=== PATIENT | male | born 1975 | race African-American/Black ===

== ENCOUNTER 2018-05-20 19:54 | Emergency (ER) | payer MEDICAID ==
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
[2018-05-20 21:23] LABS: ABSOLUTE EOSINOPHILS # (AUTO) 0.2 10^3/uL (0.0-0.6); ABSOLUTE LYMPHOCYTES (AUTO) 4.2 10^3/uL (0.5-4.7); ABSOLUTE MONOCYTES (AUTO) 0.8 10^3/uL (0.1-1.4); ABSOLUTE NEUT (AUTO) 4.9 10^3/uL (1.7-8.2); BASOPHILS % (AUTO) 0.3 % (0-2); EOSINOPHILS % (AUTO) 2.4 % (0-6); HEMATOCRIT 47.5 % (37.9-51.0); HEMOGLOBIN 16.3 g/dL (13.5-17.0); LYMPHOCYTES % (AUTO) 41.5 % (13-45); MEAN CORPUSCULAR HEMOGLOBIN 32.3 pg (27.0-33.4); MEAN CORPUSCULAR HGB CONC 34.2 g/dL (32.0-36.0); MEAN CORPUSCULAR VOLUME 94 fl (80-97); MONOCYTES % (AUTO) 7.4 % (3-13); PLATELET COUNT 219 10^3/uL (150-450); RED BLOOD COUNT 5.03 10^6/uL (4.35-5.55); SEGMENTED NEUTROPHILS % (AUTO) 48.4 % (42-78); TOTAL CELLS COUNTED % (AUTO) 100 %; WHITE BLOOD COUNT 10.1 10^3/uL (4.0-10.5)
[2018-05-20 21:38] LABS: ANION GAP 11 (5-19); BLOOD UREA NITROGEN 13 mg/dL (7-20); CALCIUM 9.3 mg/dL (8.4-10.2); CARBON DIOXIDE 29 mmol/L (22-30); CHLORIDE 105 mmol/L (98-107); GLUCOSE 111 mg/dL (75-110); POTASSIUM 4.3 mmol/L (3.6-5.0); SODIUM 144.5 mmol/L (137-145)
[2018-05-20 21:58] LABS: APPEARANCE,URINE SLIGHTLY-CLOUDY; BILIRUBIN,URINE NEGATIVE (NEGATIVE); COLOR,URINE YELLOW; GLUCOSE, URINE NEGATIVE (NEGATIVE); KETONES,URINE NEGATIVE (NEGATIVE); LEUKOCYTE ESTERASE,URINE SMALL (NEGATIVE); NITRITE,URINE NEGATIVE (NEGATIVE); PROTEIN,URINE NEGATIVE (NEGATIVE); URINE SPECIFIC GRAVITY 1.025
--- NOTE | 2018-05-20 22:16 | RADIOLOGY REPORT (SQ) ---
EXAM DESCRIPTION: US SCROTUM COMPLETED DATE/TME: 05/20/2018 20:50 CLINICAL HISTORY: 43 years, Male, left testicular pain COMPARISON: EXAM DESCRIPTION: CLINICAL HISTORY: 43 years Male left testicular pain COMPARISON: None. TECHNIQUE: Real-time, matias scale sonographic and duplex imaging performed to evaluate the testicles FINDINGS: Right testis measures 44 x 36 x 19 mm and left testis 49 x 36 x 20 mm. There are small bilateral hydroceles. Each testis appears mildly hypoechoic. No definite focal lesion of either testis is seen. No abnormal calcifications of either testis. Right testicle is normal in size. Normal blood flow to the right testicle. No evidence of intratesticular mass. Left testicle is normal in size. Normal blood flow to the left testicle. No evidence of intratesticular mass. Epididymides are unremarkable. IMPRESSION: Possible mild edema within each testis. No evidence of torsion of either testis at this time. No hyper vascularity to suggest inflammation. No focal mass is seen within either testis. However, edema due to trauma, low-grade inflammation or less likely neoplasm on either side is not entirely excluded. Follow-up is recommended to document return to normal appearance. TECHNIQUE: LIMITATIONS: None. FINDINGS: IMPRESSION: 2010 [employer]- All Rights Reserved
[2018-05-20] MEDS ORDERED: CEFTRIAXONE INJ 250 MG VIAL IM ONE (22:43)
[2018-05-20] MEDS ORDERED: LIDOCAINE 1% INJ-PF (10 MG/ML) 30 ML SDV INFIL ONE (22:44)
[2018-05-20] MEDS ORDERED: DOXYCYCLINE HYCLATE 100 MG TABLET PO ONE (22:44)
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
[2018-05-20] MEDS ORDERED: DIPHENHYDRAMINE HCL 50 MG CAPSULE PO ONE (23:15)
[2018-05-20 23:21] LABS: CHLAM PCR NOT DETECTED (NOT DETECT); GON PCR NOT DETECTED (NOT DETECT)
[2018-05-20 23:57] VITALS: BP 170/81
--- NOTE | 2018-05-21 08:17 | XCELERA REPORT ---
[address] [address] Lower Extremity Venous Evaluation Procedure: Color flow and duplex imaging of the veins of the left lower extremity as well as the right Common Femoral vein. Right Sided Venous Evaluation The right common femoral vein is fully compressible. Spontaneous and phasic flow is present in the right common femoral vein. Left Sided Venous Evaluation Subcutaneous area, irregular, mixed echogenic and echolucent area, no Colour flow. in the anterior leg. Normal vessel filling wall to wall, compression and augmentation as well as Colour flow down to the infrageniculate veins. Interpretation Summary No duplex evidence of DVT or obstruction in the left lower extremity nor in the right Common Femoral vein. A complex, non vascular mass in the subcutaneous tissues of the left leg, could be a hematoma, abscess or other lesion. Further evaluation may be warranted, depending on clinical presentation. Name: ETHAN LASSITER Age: 43 yrs Gender: Male : 1975 Patient Status: Emergency Patient Location: ER Study Date: 05/20/2018 10:02 PM Reason For Study: LLE swelling Ordering Physician: ROSSI FARMER Performed By: Victoria Masterson : ROSSI FARMER > Vlad Stubbs
== END 2018-05-20 23:31 | disposition home or self-care (01) ==
LOC: ER 19:54
DX: L02.416 Cutaneous abscess of left lower limb (principal); N50.812 Left testicular pain; N50.811 Right testicular pain; Z88.0 Allergy status to penicillin
CPT/HCPCS: 99284; 96372; 36415; 87086; 85025; 87088; 80048; 81001; 87491; 87591; 93971 ×2; 76870; 93976; 10060; J3490 ×3; J0696

== ENCOUNTER 2019-06-23 02:28 | Emergency (ER) | payer SELFPAY ==
[2019-06-23 03:06] LABS: APPEARANCE,URINE SLIGHTLY-CLOUDY; BILIRUBIN,URINE NEGATIVE (NEGATIVE); COLOR,URINE YELLOW; GLUCOSE, URINE NEGATIVE (NEGATIVE); KETONES,URINE NEGATIVE (NEGATIVE); LEUKOCYTE ESTERASE,URINE MODERATE (NEGATIVE); NITRITE,URINE NEGATIVE (NEGATIVE); PROTEIN,URINE 30 mg/dL (NEGATIVE); URINE SPECIFIC GRAVITY 1.023
--- NOTE | 2019-06-23 07:31 | ER Document Report ---
ED Medical Screen (RME) - General Chief Complaint: Flank Pain Stated Complaint: LOWER BACK PAIN Time Seen by Provider: 06/23/19 07:06 Notes: 44-year-old male presents with urinary urgency that is worse at night for the past 2 months, burning/flow not being rate with urination, flank pain, and bilateral testicular pain. Patient states that the flank pain started off in the left and then has progressed to the right and has been ongoing for 2 months. Patient also has been complaining of bilateral testicular pain that is been going on for the past few days. Patient states he has had this previously. Patient denies any hematuria, nausea/vomiting/diarrhea, abdominal pain, hematuria. TRAVEL OUTSIDE OF THE [place] IN LAST 30 DAYS: No - Related Data Allergies/Adverse Reactions: Penicillins Allergy (Verified 05/20/18 19:59) Past Medical History Renal/ Medical History: Denies: Hx Peritoneal Dialysis Physical Exam - Vital signs Vitals: Temp Pulse Resp BP Pulse Ox 98.8 F 100 20 181/84 H 96 06/23/19 02:32 06/23/19 02:32 06/23/19 02:32 06/23/19 02:32 06/23/19 02:32 - Notes Notes: Abdomen soft nontender. Mild CVA tenderness on left. Testicular exam deferred at this time. Course - Re-evaluation Re-evalutation: I have greeted and performed a rapid initial assessment of this patient. A comprehensive ED assessment and evaluation of the patient, analysis of test results and completion of the medical decision making process with be conducted by additional ED providers. - Vital Signs Vital signs: Temp Pulse Resp BP Pulse Ox 98.4 F 91 18 153/73 H 95 06/23/19 05:57 06/23/19 05:57 06/23/19 05:57 06/23/19 05:57 06/23/19 05:57 - Laboratory Laboratory results interpreted by me: 06/23/19 02:35 Urine Protein 30 H Urine Urobilinogen 2.0 H Ur Leukocyte Esterase MODERATE H
[2019-06-23] MEDS ORDERED: KETOROLAC TROMETHAMINE 60 MG/2 ML SDV IM ONE (07:45)
--- NOTE | 2019-06-23 08:24 | RADIOLOGY REPORT (SQ) ---
EXAM DESCRIPTION: U/S SCROTUM W/DOPPLER COMPLETED DATE/TIME: 06/23/2019 8:02 am REASON FOR STUDY: testicular pain COMPARISON: 2017 TECHNIQUE: Static and realtime matias scale imaging of the scrotum and testes. Selected color Doppler and spectral images recorded to document blood flow. LIMITATIONS: None. FINDINGS: RIGHT: TESTICLE: Normal size. Normal echotexture. Normal blood flow. No mass. EPIDIDYMIS: Normal. HYDROCELE OR VARICOCELE: Mild hydrocele. HERNIA OR EXTRA-TESTICULAR MASS: No. OTHER: No other significant finding. LEFT: TESTICLE: Normal size. Normal echotexture. Normal blood flow. No mass. EPIDIDYMIS: Normal. HYDROCELE OR VARICOCELE: Mild hydrocele. HERNIA OR EXTRA-TESTICULAR MASS: No. OTHER: No other significant finding. IMPRESSION: No evidence of testicular torsion or mass. Mild bilateral hydroceles. TECHNICAL DOCUMENTATION: JOB ID: [id number] [employer]- All Rights Reserved Reading location - IP/workstation name: [email or web address]
--- NOTE | 2019-06-23 08:25 | RADIOLOGY REPORT (SQ) ---
EXAM DESCRIPTION: U/S RETROPERITON LTD COMPLETED DATE/TIME: 06/23/2019 7:51 am REASON FOR STUDY: flank pain, dysuria COMPARISON: None. TECHNIQUE: Dynamic and static grayscale images acquired of the kidneys and bladder and recorded on P ACS. Additional selected color Doppler and spectral images recorded. LIMITATIONS: None. FINDINGS: RIGHT KIDNEY: Normal size. Normal echogenicity. No solid or suspicious masses. No hydronep hrosis. No calcifications. LEFT KIDNEY: Normal size. Normal echogenicity. No solid or suspicious masses. No hydronephrosis. No calcifications. BLADDER: No masses. OTHER FINDINGS: No other significant finding. IMPRESSION: NORMAL RENAL AND BLADDER ULTRASOUND. TECHNICAL DOCUMENTATION: JOB ID: [id number] [employer]- All Rights Reserved Reading location - IP/workstation name: [email or web address]
[2019-06-23] MEDS ORDERED: DOXYCYCLINE HYCLATE 100 MG TABLET PO ONE (09:56)
--- NOTE | 2019-06-23 10:53 | ER Document Report ---
ED GI/ - General Chief Complaint: Flank Pain Stated Complaint: LOWER BACK PAIN Time Seen by Provider: 06/23/19 07:06 Notes: Mr. Linares is a 44-year-old male with no significant past medical history presenting to the ED for testicular pain and urgency. Patient states that he is biggest complaint is the urinary frequency and dysuria. However he has some drooping of his penile skin when he urinates which causes him to dribble. He does endorse some dribbling and decreased stream. He states that he has had an STI in the past however it was many years ago and he is not currently sexually active. He states he is not been sexually active for over 6 months. Patient denies any penile discharge. No abdominal pain, nausea, vomiting or diarrhea. Patient denies any flank pain, fevers or chills, or headaches. TRAVEL OUTSIDE OF THE [place] IN LAST 30 DAYS: No - Related Data Allergies/Adverse Reactions: Penicillins Allergy (Verified 05/20/18 19:59) Past Medical History - Social History Smoking Status: Current Every Day Smoker Family History: Reviewed & Not Pertinent Patient has suicidal ideation: No Patient has homicidal ideation: No Renal/ Medical History: Denies: Hx Peritoneal Dialysis Review of Systems - Review of Systems Constitutional: See HPI EENT: No symptoms reported Cardiovascular: No symptoms reported Respiratory: No symptoms reported Gastrointestinal: No symptoms reported Genitourinary: See HPI Male Genitourinary: See HPI Musculoskeletal: No symptoms reported Skin: No symptoms reported Hematologic/Lymphatic: No symptoms reported Neurological/Psychological: No symptoms reported Physical Exam - Vital signs Vitals: Temp Pulse Resp BP Pulse Ox 98.8 F 100 20 181/84 H 96 06/23/19 02:32 06/23/19 02:32 06/23/19 02:32 06/23/19 02:32 06/23/19 02:32 Interpretation: Hypertensive - General General appearance: Appears well, Alert - HEENT Head: Normocephalic, Atraumatic Eyes: Normal Pupils: PERRL - Respiratory Respiratory status: No respiratory distress Chest status: Nontender Breath sounds: Normal Chest palpation: Normal - Cardiovascular Rhythm: Regular Heart sounds: Normal auscultation Murmur: No - Abdominal Inspection: Normal Distension: No distension Bowel sounds: Normal Tenderness: Nontender Organomegaly: No organomegaly - Genitourinary Inspection: Normal Tenderness: Nontender. No: Lesions, Testicle tender, Epididymis tender Cremasteric reflex: Normal Scrotum: Normal Notes: Patient deferred rectal examination. Some mild excess of skin and drooping of shaft skin. Patient is circumcised. No discharge at urethral meatus. No indirect he appreciated on examination. Testicles are nontender to palpation. Entire urinary examination performed with male applied anthropologist Mark JAIMES in the room. - Back Back: Normal, Nontender. No: CVA tenderness - Bilaterally - Extremities General upper extremity: Normal inspection, Nontender, Normal color, Normal ROM, Normal temperature General lower extremity: Normal inspection, Nontender, Normal color, Normal ROM, Normal temperature, Normal weight bearing. No: Angel's sign - Neurological Neuro grossly intact: Yes Cognition: Normal Orientation: AAOx4 July Coma Scale Eye Opening: Spontaneous Industry Coma Scale Verbal: Oriented Industry Coma Scale Motor: Obeys Commands Industry Coma Scale Total: 15 Speech: Normal Motor strength normal: LUE, RUE, LLE, RLE Sensory: Normal - Psychological Associated symptoms: Normal affect, Normal mood - Skin Skin Temperature: Warm Skin Moisture: Dry Skin Color: Normal Course - Re-evaluation Re-evalutation: Patient is generally well-appearing nontoxic. Initial vitals notable for elevat ed blood pressure however this resolved while in the ED. Differential diagnosis includes UTI, STI, BPH 06/23/19 10:54 UA shows evidence of moderate leukocyte esterase with 20 WBCs. Patient's UA is consistent with a UTI. However he states he is not sexually active. Patient is allergic to penicillins and possibility of UTI related to enlarged BPH, will administer first dose of doxycycline. Patient will be discharged with 14 days of twice daily doxycycline. Will add on gonorrhea and chlamydia however no indication at this point in time to treat empirically with the lack of physical findings such as discharge. Both renal ultrasound and testicular ultrasound were performed prior to my evaluation. Renal ultrasound unremarkable. Testicular ultrasound shows small amount of bilateral mild hydrocele. 06/23/19 11:05 Patient was given doxycycline here in the ED and does not have any evidence of side effect or reaction or allergies. She will be discharged with doxycycline prescription. Recommended that he follow-up with urology. Patient given return precautions. Patient will also told that he would be called if the gonorrhea or chlamydia is positive. 06/23/19 11:08 Patient will also be discharged with tamsulosin for likely early BPH. - Vital Signs Vital signs: Temp Pulse Resp BP Pulse Ox 98.4 F 91 18 153/73 H 95 06/23/19 05:57 06/23/19 05:57 06/23/19 05:57 06/23/19 05:57 06/23/19 05:57 - Laboratory Laboratory results interpreted by me: 06/23/19 02:35 Urine Protein 30 H Urine Urobilinogen 2.0 H Ur Leukocyte Esterase MODERATE H Discharge - Discharge Clinical Impression: UTI (urinary tract infection) Qualifiers: Urinary tract infection type: site unspecified Hematuria presence: without hematuria Qualified Code(s): N39.0 - Urinary tract infection, site not specified Condition: Good Disposition: HOME, SELF-CARE Instructions: Urinary Tract Infection ([facility]), Doxycycline ([facility]), Prostatic Hypertrophy ([facility]) Additional Instructions: Would recommend that he follow-up with a urologist as an outpatient. If you do not have improvement in urinary frequency, burning with urination, please return to the ED for further evaluation. Otherwise it is important that you take the full course of antibiotics. I also prescribed you with tamsulosin, which will help improve your urine stream and decrease the pressure near the prostate. Prescriptions: Doxycycline Monohydrate 100 mg PO BID 14 Days #28 capsule Tamsulosin HCl [Flomax 0.4 mg Cap.sr] 0.4 mg PO DAILY #30 cap.sr.24h Referrals: JOSE G REDMOND MD [NO LOCAL MD] - Follow up as needed MELINA SANTIAGO MD [JULIETA MILES] - Follow up as needed YOANA FOSTER MD [JULIETA MILES] - Follow up as needed DAYANA RIVERA PA [PHYSICIAN [facility] [employer] [facility] [facility]] - Follow up as needed
[2019-06-23 11:39] LABS: CHLAM PCR NOT DETECTED (NOT DETECT)
[2019-06-23 12:01] VITALS: BP 148/74
== END 2019-06-23 12:00 | disposition home or self-care (01) ==
LOC: ER 02:28
DX: N39.0 Urinary tract infection, site not specified (principal); R39.15 Urgency of urination; R35.0 Frequency of micturition; N39.43 Post-void dribbling; M54.5 Low back pain; N50.819 Testicular pain, unspecified; R03.0 Elevated blood-pressure reading, without diagnosis of hypertension; F17.200 Nicotine dependence, unspecified, uncomplicated
CPT/HCPCS: 76775; 76870; 81001; 87086; 87491; 87591; 93976; 99284

== ENCOUNTER 2019-09-20 22:37 | Emergency (ER) | payer SELFPAY ==
[2019-09-20] MEDS ORDERED: DIPHENHYDRAMINE HCL 50 MG/ML VIAL IV ONE (22:47)
[2019-09-20] MEDS ORDERED: KETOROLAC TROMETHAMINE INJ/PF 30 MG/1 ML SDV IV ONE (22:47)
[2019-09-20] MEDS ORDERED: NORMAL SALINE 1000 ML 1,000 ML IV ONE (22:47)
[2019-09-20] MEDS ORDERED: METOCLOPRAMIDE HCL INJ/PF 10 MG/2 ML SDV IV ONE (22:47)
--- NOTE | 2019-09-20 22:49 | ER Document Report ---
ED Medical Screen (RME) - General Stated Complaint: POSSIBLE HIGH BLOOD PRESSURE Notes: Patient is a 44-year-old -[place] male with a past medical history significant for hypertension who presents to the emergency department the chief complaint of elevated blood pressure and headache. States he has been out of his medicines for hypertension. Has a global headache that came on gradually. States he was concerned so he came for evaluation. Denies any numbness, tingling or weakness. I have treated and performed a rapid initial assessment of this patient. A comprehensive ED assessment and evaluation of the patient, analysis of test results and completion of medical decision making process will be conducted by additional ED providers. PHYSICAL EXAMINATION: GENERAL: Well-appearing, well-nourished and in no acute distress. A&Ox4. Answers questions appropriately. TRAVEL OUTSIDE OF THE [place] IN LAST 30 DAYS: No - Related Data Allergies/Adverse Reactions: Penicillins Allergy (Verified 05/20/18 19:59) Past Medical History Renal/ Medical History: Denies: Hx Peritoneal Dialysis
[2019-09-20 23:15] LABS: ABSOLUTE BASOPHILS # (AUTO) 0.1 10^3/uL (0.0-0.2); ABSOLUTE EOSINOPHILS # (AUTO) 0.1 10^3/uL (0.0-0.6); ABSOLUTE LYMPHOCYTES (AUTO) 3.7 10^3/uL (0.5-4.7); ABSOLUTE MONOCYTES (AUTO) 0.8 10^3/uL (0.1-1.4); ABSOLUTE NEUT (AUTO) 4.3 10^3/uL (1.7-8.2); BASOPHILS % (AUTO) 0.7 % (0-2); EOSINOPHILS % (AUTO) 1.4 % (0-6); HEMATOCRIT 44.6 % (37.9-51.0); HEMOGLOBIN 15.6 g/dL (13.5-17.0); LYMPHOCYTES % (AUTO) 41.1 % (13-45); MEAN CORPUSCULAR HEMOGLOBIN 32.4 pg (27.0-33.4); MEAN CORPUSCULAR VOLUME 93 fl (80-97); MONOCYTES % (AUTO) 8.8 % (3-13); PLATELET COUNT 209 10^3/uL (150-450); RED BLOOD COUNT 4.81 10^6/uL (4.35-5.55); RED CELL DISTRIBUTION WIDTH 13.9 % (11.5-14.0); TOTAL CELLS COUNTED % (AUTO) 100 %
--- NOTE | 2019-09-20 23:36 | RADIOLOGY REPORT (SQ) ---
EXAM DESCRIPTION: [facility]: CT HEAD WITHOUT IV CONTRAST CLINICAL HISTORY: 44 years Male; HTN GAINES; TECHNIQUE: Noncontrast CT head. All CT scans at this facility use dose modulation, iterative reconstruction, and/or weight based dosing when appropriate to reduce radiation dose to as low as reasonably achievable. COMPARISON: None. FINDINGS: Morris matter, white matter, ventricles, and cisterns are within normal limits. No acute hemorrhage or mass effect. Visualized portions of paranasal sinuses and mastoids are clear. Visualized portions of the calvarium are within normal limits. IMPRESSION: 1. No acute intracranial findings.
[2019-09-21] LABS: ALBUMIN 4.4 g/dL (3.5-5.0); ALKALINE PHOSPHATASE 58 U/L (38-126); ANION GAP 8 (5-19); ASPARTATE AMINO TRANSFERASE 30 U/L (17-59); BILIRUBIN,DIRECT 0.4 mg/dL (0.0-0.4); BILIRUBIN,TOTAL 0.5 mg/dL (0.2-1.3); BLOOD UREA NITROGEN 14 mg/dL (7-20); CALCIUM 9.3 mg/dL (8.4-10.2); CARBON DIOXIDE 31 mmol/L (22-30); CHLORIDE 103 mmol/L (98-107); GLUCOSE 114 mg/dL (75-110); POTASSIUM 3.9 mmol/L (3.6-5.0); TOTAL PROTEIN 7.7 g/dL (6.3-8.2)
[2019-09-21] MEDS ORDERED: HYDROCHLOROTHIAZIDE 25 MG TABLET PO ONE (01:09)
--- NOTE | 2019-09-21 01:16 | ER Document Report ---
ED General - General Chief Complaint: High Blood Pressure Stated Complaint: POSSIBLE HIGH BLOOD PRESSURE Time Seen by Provider: 09/21/19 00:40 Notes: 44 y/o male with history of hypertension presents for elevated blood pressure, headache, and intermittent visual changes for the past 3 weeks. Pt states he has been out of his blood pressure medication for the past 3 weeks. Denies chest pain. TRAVEL OUTSIDE OF THE [place] IN LAST 30 DAYS: No - Related Data Allergies/Adverse Reactions: Penicillins Allergy (Verified 05/20/18 19:59) Home Medications: bp med Past Medical History - Social History Smoking Status: Current Every Day Smoker Family History: Reviewed & Not Pertinent Patient has suicidal ideation: No Patient has homicidal ideation: No - Past Medical History Cardiac Medical History: Reports: Hx Hypertension Renal/ Medical History: Denies: Hx Peritoneal Dialysis Review of Systems - Review of Systems Notes: Constitutional: Negative for fever. HENT: Negative for sore throat. Eyes: Negative for visual changes. Cardiovascular: Negative for chest pain. Respiratory: Negative for shortness of breath. Gastrointestinal: Negative for abdominal pain, vomiting or diarrhea. Genitourinary: Negative for dysuria. Musculoskeletal: Negative for back pain. Skin: Negative for rash. Neurological: Positive for headaches. Negative for weakness or numbness. 10 point ROS negative except as marked above and in HPI. Physical Exam - Vital signs Vitals: Temp Pulse Resp BP Pulse Ox 98.6 F 100 16 177/87 H 97 09/20/19 22:43 09/20/19 22:43 09/20/19 22:43 09/20/19 22:43 09/20/19 22:43 - Notes Notes: GENERAL: Well-appearing, well-nourished and in no acute distress. HEAD: Atraumatic, normocephalic. EYES: Extraocular movements intact, sclera anicteric, conjunctiva are normal. NECK: Normal range of motion, supple without lymphadenopathy or JVD. LUNGS: No tachypnea. No accessory muscle use. No tripoding. EXTREMITIES: Normal range of motion, no pitting or edema. No clubbing or cyanosis. NEUROLOGICAL: Cranial nerves II through XII grossly intact. Normal speech, normal gait. PSYCH: Normal mood, normal affect. SKIN: Warm, Dry, normal turgor, no rashes or lesions noted. Course - Re-evaluation Re-evalutation: 09/21/19 nontoxic, well-appearing 44-year-old male presents for elevated blood pressure, headache, intermittent visual changes for the past 3 weeks. Patient has been out of his blood pressure medicine, HCTZ 12.5 mg twice daily, for 3 weeks. Patient denies chest pain. Patient has no signs of endorgan damage on exam. Lab work is reassuring, no leukocytosis, no anemia, no signs of kidney damage. CT head is negative. Patient's headache has been relieved with migraine cocktail. Patient given 1 dose of his HCTZ in the ER and prescription for 30-day supply with follow-up with PCP. Strict return precautions given. Patient voices understanding and agrees with plan of care. - Vital Signs Vital signs: Temp Pulse Resp BP Pulse Ox 98.6 F 100 16 177/87 H 97 09/20/19 22:43 09/20/19 22:43 09/20/19 22:43 09/20/19 22:43 09/20/19 22:43 - Laboratory Result Diagrams: 09/20/19 22:56 09/20/19 22:56 Laboratory results interpreted by me: 09/20/19 22:56 Carbon Dioxide 31 H Glucose 114 H Discharge - Discharge Clinical Impression: Hypertension Qualifiers: Hypertension type: unspecified Qualified Code(s): I10 - Essential (primary) hypertension Headache Qualifiers: Headache type: unspecified Headache chronicity pattern: unspecified pattern Intractability: not intractable Qualified Code(s): R51 - Headache Condition: Stable Disposition: HOME, SELF-CARE Instructions: High Blood Pressure ([facility]), Hydrochlorothiazide ([facility]) Additional Instructions: It is important to take your blood pressure medicine. Please take it as prescribed. Please follow-up with 1 of the clinics listed to establish a primary care doctor for further refills/work-up in 3 to 5 days. Return immediately to ER if you start having any worsening symptoms, including increased headache, neck pain/stiffness, fever, weakness, confusion, feeling like you are going to pass out, passing out, chest pain, shortness of breath, or any other symptoms that are concerning to you. Prescriptions: Hydrochlorothiazide [Hydrodiuril 25 mg Tablet] 12.5 mg PO BID #60 tablet Forms: Return to Work Referrals: SAUL CORDOVA MD [COMMUNITY BASED STAFF] - Follow up in 3-5 days [facility] [Provider Group] - Follow up in 3-5 days
[2019-09-21 02:22] VITALS: BP 125/63
== END 2019-09-21 02:22 | disposition home or self-care (01) ==
LOC: ER 22:37
DX: I10 Essential (primary) hypertension (principal); R51 Headache; H53.9 Unspecified visual disturbance; Z79.899 Other long term (current) drug therapy; Z91.14 Patient's other noncompliance with medication regimen; F17.200 Nicotine dependence, unspecified, uncomplicated
CPT/HCPCS: 99284; 96361; 96374; 96375; 36415; 85025; 80053; 70450; J1200; J1885; J2765; J7030